=== PATIENT | female | born 1985 | race Caucasian/White ===

== ENCOUNTER 2017-02-23 09:35 | Emergency (ER) | payer MEDICARE, MEDICAID ==
[~2017-02-23] VITALS: Ht 167.6 cm; Wt 112.4 kg
[~2017-02-23 09:35] MED LIST: IBUP-1502 PO; OXYC500S PO; PREN1TAB28 PO
[2017-02-23 09:37] VITALS: BP 125/76
[2017-02-23] MEDS ORDERED: KETOROLAC 30 MG/1 ML IM ONE (10:00)
[2017-02-23] MEDS ORDERED: KETOROLAC 30 MG/1 ML ONE (10:06)
== END 2017-02-23 11:15 | disposition home or self-care (01) ==
LOC: ED 11:09
DX: S93.491A Sprain of other ligament of right ankle, initial encounter (principal); S93.621A Sprain of tarsometatarsal ligament of right foot, initial encounter; W22.8XXA Striking against or struck by other objects, initial encounter; Y93.89 Activity, other specified; Y92.89 Other specified places as the place of occurrence of the external cause; Y99.8 Other external cause status
CPT/HCPCS: 73610; 73630; 96372; 99284; J1885